=== PATIENT | female | born 1935 | race Caucasian/White ===

== ENCOUNTER 2018-05-18 13:02 | Observation (INO) ==
[2018-05-18] MEDS: Acetaminophen 325 MG Tablet PO ONE ×2 (14:44→15:48)
[2018-05-18 14:49] LABS: Baso % (Auto) 0.6 % (0.0-2.0); Eos # (Auto) 0.1 th/mm3 (0.0-0.4); Hematocrit 36.2 % (35.0-46.0); Hemoglobin 12.3 gm/dL (11.6-15.3); Lymph # (Auto) 0.8 th/mm3 (1.0-4.8); Lymph % (Auto) 14.7 % (9.0-44.0); Mean Corpuscular HGB Conc 34.1 % (32.0-36.0); Mean Corpuscular Hemoglobin 32.4 pg (27.0-34.0); Mean Corpuscular Volume 95.1 fL (80.0-100.0); Mean Platelet Volume 9.1 fL (7.0-11.0); Mono # (Auto) 0.5 th/mm3 (0.0-0.9); Mono % (Auto) 8.1 % (0.0-8.0); Neut # (Auto) 4.2 th/mm3 (1.8-7.7); Neut % (Auto) 74.6 % (16.0-70.0); Platelet Count 202 th/mm3 (150-450); Red Cell Distribution Width 13.5 % (11.6-17.2); White Blood Count 5.7 th/mm3 (4.0-11.0)
--- NOTE | 2018-05-18 14:51 | ED ---
HPI General Chief complaint: Syncope Stated complaint: Syncope Time Seen by Provider: 05/18/18 14:17 Source: patient, EMS and RN notes reviewed Mode of arrival: EMS History of Present Illness HPI narrative: 82yF presenting with syncope. The patient states that she moved back from from a rehab facility yesterday and ambulates with a walker at baseline. This afternoon, she was walking into the bathroom when she began to feel lightheaded/ dizzy and lost consciousness, hitting her chest on the towel bar. She is unsure if she hit her head but currently complains of neck pain and substernal chest pain ("aching like when I had my heart attack", non-radiating, constant, moderate intensity, not made better or worse by anything). She says that for the past 2 days she's been having intermittent episodes of palpitations and dyspnea which last for a few seconds and resolve on their own. Denies cough, current palpitations, visual disturbance, or numbness/ tingling/ weakness of extremities. Tactical/Mobile Watch Officer is Dr. Amaya. Family history non-contributory. Related Data Home Medications Medication Instructions Recorded Confirmed divalproex 250 mg PO DAILY 04/07/18 05/18/18 omeprazole 20 mg PO DAILY 04/07/18 05/18/18 prednisone 5 mg PO DAILY 04/07/18 05/18/18 Previous Rx's Medication Instructions Recorded acidophilus-sporogenes 1 tab PO TID #27 tab 04/13/18 [Acidophilus Ex Str (L. sporog)] aspirin 162 mg PO DAILY #60 tab 04/13/18 carvedilol [Coreg] 6.25 mg PO BID #60 tab 04/13/18 clopidogrel [Plavix] 75 mg PO DAILY #30 tab 04/13/18 diltiazem HCl 30 mg PO Q6H #120 tab 04/13/18 isosorbide mononitrate 30 mg PO DAILY #30 tab 04/13/18 levofloxacin 750 mg PO DAILY #1 tab 04/13/18 nitroglycerin [Nitrostat] 0.4 mg SUBLINGUAL Q5M PRN #30 tab 04/13/18 ramipril 2.5 mg PO DAILY #30 cap 04/13/18 Allergies Allergy/AdvReac Type Severity Reaction Status Date / Time codeine Allergy Unknown Bleeding Verified 05/18/18 14:10 erythromycin base Allergy Unknown Anxiety Verified 05/18/18 14:10 penicillin G Allergy Unknown Fatigue Verified 05/18/18 14:10 atorvastatin Allergy Chest Pain Verified 05/18/18 14:10 Review of Systems ROS: all other systems reviewed are negative Constitutional Denies fever(s) Eyes Denies blurry vision ENT Denies nasal congestion Cardiovascular Reports chest pain Respiratory Denies cough Gastrointestinal Denies nausea Genitourinary Denies dysuria Musculoskeletal Denies back pain and Reports neck pain Neurologic Denies confusion Psychiatric Denies confusion [facility] Medical History Medical History Heart murmur (Acute) Osteoporosis (Acute) Sigmoid colon mucosal prolapse (Acute) Surgical History Surgical History History of neck surgery (Acute) Hx of appendectomy (Acute) Family History Family History Sister CHF (congestive heart failure) Other Osteoarthritis Social History Social History Substance History: No History of Abuse Second Hand Smoke Exposure: No Smoking Status: Never smoker Tobacco Type: Cigarettes How Often Do You Have a Drink Containing Alcohol: Never Recent Travel in [facility] within the Last 8 Weeks: No Recent Out of Country Travel within the Last 8 Weeks: No Immunization History Tetanus Immunization: <5 Years Exam Const General: healthy appearing and no acute distress [facility] Head: normocephalic and atraumatic Face and sinus: normal facial exam Eyes General: appearance normal, both eyes and all related structures Pupils: PERRL Neck Other: (+) midline and paraspinal cervical tenderness Chest Other: Abrasion to anterior chest, no chest wall instability Resp Effort & Inspection: normal respiratory effort Auscultation: no rhonchi and no wheezes Cardio Rate: regular rate Rhythm: regular rhythm GI Inspection: non-distended Palpation: soft and nontender Skin General: no rashes or lesions noted Neuro General: alert, awake, oriented x3 and no focal motor deficits Psych Affect: normal affect Course Initial Documented Vital Signs Temperature 98.2 F 05/18/18 14:08 Pulse Rate 58 L 05/18/18 14:08 Respiratory Rate 20 05/18/18 14:08 Blood Pressure 141/65 H 05/18/18 14:08 Pulse Oximetry 97 05/18/18 14:08 Last Documented Vital Signs Temperature 98.2 F 05/18/18 14:08 Pulse Rate 58 L 05/18/18 14:08 Respiratory Rate 18 05/18/18 14:13 Blood Pressure 141/65 H 05/18/18 14:08 Pulse Oximetry 97 05/18/18 14:08 Medical Decision Making MDM Narrative Medical decision making narrative: Assessment: 82yF presenting with chest pain and syncope Plan: EKG and monitor CXR Labs, including trop CT brain and C spine UA Addendum: Patient found to have episodes of brief rapid A fib on 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 She reports palpitations and dyspnea during these episodes. This is likely the underlying etiology of her syncope. I discussed the results of labs and imaging with the patient as well as plan to keep her for observation and further cardiac monitoring; she understands and agrees. Case discussed with Dr. Rogel of [facility]. Medical Screen Exam Complete: Yes Emergency Medical Condition: Yes Differential Diagnosis Differential Diagnosis: Differential diagnosis includes, but is not limited to: arrhythmia, ACS, pneumonia, pleural effusion, ICH, C spine injury, electrolyte abnormality, dehydration, UTI Medical Records Medical records reviewed: Yes I reviewed the patient's medical records. Lab Data Lab results reviewed: Yes I reviewed the patient's lab results. Result diagrams: 05/18/18 14:35 05/18/18 14:35 Lab Results 05/18/18 05/18/18 05/18/18 Range/Units 14:35 14:35 14:35 WBC 5.7 (4.0-11.0) th/mm3 RBC 3.80 L (4.00-5.30) mil/mm3 Hgb 12.3 (11.6-15.3) gm/dL Hct 36.2 (35.0-46.0) % MCV 95.1 (80.0-100.0) fL MCH 32.4 (27.0-34.0) pg MCHC 34.1 (32.0-36.0) % RDW 13.5 (11.6-17.2) % Plt Count 202 (150-450) th/mm3 MPV 9.1 (7.0-11.0) fL Prelim Diff (Auto) Slide review pending Neut % (Auto) 74.6 H (16.0-70.0) % Lymph % (Auto) 14.7 (9.0-44.0) % Tyler % (Auto) 8.1 H (0.0-8.0) % Eos % (Auto) 2.0 (0.0-4.0) % Baso % (Auto) 0.6 (0.0-2.0) % Neut # (Auto) 4.2 (1.8-7.7) th/mm3 Lymph # (Auto) 0.8 L (1.0-4.8) th/mm3 Tyler # (Auto) 0.5 (0.0-0.9) th/mm3 Eos # (Auto) 0.1 (0.0-0.4) th/mm3 Baso # (Auto) 0.0 (0.0-0.2) th/mm3 WBC Differential Manual diff final Seg Neuts % (Manual) 71 H (16-70) % Band Neuts % (Manual) 3 (0-6) % Lymphocytes % (Manual) 17 (9-44) % Monocytes % (Manual) 6 (0-8) % Eosinophils % (Manual) 2 (0-4) % Basophils % (Manual) 1 (0-2) % Abs Neuts (Manual) 4.2 (1.8-7.7) th/mm3 Differential Comment . Platelet Estimate Normal (Normal) Platelet Morphology Normal (Normal) Acanthocytes (Spur) Occ H (None) Sodium 140 (136-145) meq/L Potassium 3.8 (3.5-5.1) meq/L Chloride 107 (98-107) meq/L Carbon Dioxide 27.2 (21.0-32.0) meq/L Anion Gap 6 (5-15) meq/L BUN 16 (7-18) mg/dL Creatinine 0.75 (0.50-1.00) mg/dL Estimated GFR 74 L (>89) mL/min Random Glucose 105 (74-106) mg/dL Calcium 8.3 L (8.5-10.1) mg/dL Magnesium 2.1 (1.5-2.5) mg/dL Total Bilirubin 0.3 (0.2-1.0) mg/dL AST 20 (15-37) U/L ALT 17 (10-53) U/L Alkaline Phosphatase 65 (45-117) U/L Troponin I Less than 0.02 L (0.02-0.05) ng/mL B-Natriuretic Peptide 157 H (0-100) pg/mL Total Protein 6.7 (6.4-8.2) g/dL Albumin 3.3 L (3.4-5.0) g/dL Imaging Data Radiologist's impression: Cervical Spine CT 05/18/18 14:30 CONCLUSION: Severe degenerative changes. No acute bony injury. Chest X-Ray 05/18/18 14:30 CONCLUSION: Diffuse interstitial prominence throughout the lungs. No acute infiltrate. Previous coronary stenting Head CT 05/18/18 14:30 CONCLUSION: No acute intracranial injury . . ECG Data Attestation: I personally reviewed and interpreted this ECG as follows: Interpretation: Rate: 56 BPM Rhythm: Sinus [place]: Normal Intervals: Normal intervals, no blocks, QTc 442 ms Q waves: aVL T waves: Inverted in aVL ST segments: No elevations or depressions Impression: Non-specific EKG, no changes as compared to EKG from 04/13/2018. Discharge Plan Discharge Disposition Patient Disposition: ED Admit(ED Internal Use Only) Discharge Condition Condition: Stable Discharge Order Discharge Orders: ED Use Only Admit Order (Routine); Ordered 05/18/18 Ordered By: Ramona Ruiz Discharge Details Diagnosis: Paroxysmal atrial fibrillation with RVR, Cardiac syncope, Chest pain, Chest wall contusion Physicians Team ED Provider: Ramona Ruiz Primary Care Provider: UNKNOWN, Attending Provider: Luiza Rogel Discharge Interventions Interventions: Vital Signs Last Done: 05/18/18 14:13 Status ED Status: Admitted Observation Patient
--- NOTE | 2018-05-18 14:59 | XR ---
EXAM DATE: 05/18/2018 2:50 PM EST AGE/SEX: 82 years / Female INDICATIONS: . Syncope, short of breath. CLINICAL DATA: This is the patient's initial encounter. Patient reports that signs and symptoms have been present for 1 day and indicates a pain score of 0/10. MEDICAL/SURGICAL HISTORY: None. . 2 coronary artery stents 03/2018, breast implants 15 years ago . COMPARISON: [facility], CHEST 1V SINGLE AP, 04/07/2018. . FINDINGS: PA and lateral views of the chest demonstrate the lungs to be symmetrically aerated without evidence of mass, infiltrate or effusion. There is mild diffuse interstitial prominence throughout the lungs. The cardiomediastinal contours are unremarkable. Osseous structures are intact. Suspected coronary st ents CONCLUSION: Diffuse interstitial prominence throughout the lungs. No acute infiltrate. Previous coronary stenting Electronically signed by: Andrea Santiago MD Board Certified Radiologist 05/18/2018 2:58 PM EST
--- NOTE | 2018-05-18 15:17 | CT ---
EXAM DATE: 05/18/2018 3:13 PM EST AGE/SEX: 82 years / Female INDICATIONS: Trauma, patient fell into shower rails. Complains of dizziness. CLINICAL DATA: This is the patient's initial encounter. Patient reports that signs and symptoms have been present for 1 day and indicates a pain score of 2/10. MEDICAL/SURGICAL HISTORY: None. . neck surgery RADIATION DOSE: 27.68 CTDI (mGy) COMPARISON: No prior exams available for comparison. TECHNIQUE: CT of the head without contrast. Using automated exposure control and adjustment of the mA and/or kV according to patient size, radiation dose was kept as low as reasonably achievable to ob tain optimal diagnostic quality images. DICOM format image data is available electronically for revi ew and comparison. FINDINGS: Cerebrum: The ventricles are normal for age. No evidence of midline shift, mass lesion, hemorrhage or acute infarction. No extraaxial fluid collections are seen. Posterior Fossa: The cerebellum and brainstem are intact. The 4th ventricle is midline. The cerebe llopontine angle is unremarkable. Extracranial: The visualized portion of the orbits is intact. Skull: The calvaria is intact. No evidence of skull fracture. CONCLUSION: No acute intracranial injury . . Electronically signed by: Troy Mccarty MD Board Certified Radiologist 05/18/2018 3:15 PM EST
[2018-05-18 15:20] LABS: Alanine Aminotransferase 17 U/L (10-53); Alkaline Phosphatase 65 U/L (45-117); Total Protein 6.7 g/dL (6.4-8.2)
--- NOTE | 2018-05-18 15:21 | CT ---
EXAM DATE: 05/18/2018 3:17 PM EST AGE/SEX: 82 years / Female INDICATIONS: Patient fell into shower rail. CLINICAL DATA: This is the patient's initial encounter. Patient reports that signs and symptoms have been present for 1 day and indicates a pain score of 5/10. MEDICAL/SURGICAL HISTORY: None. . neck surgery RADIATION DOSE: 18.68 CTDI (mGy) COMPARISON: No prior exams available for comparison. TECHNIQUE: Contiguous axial images were obtained using helical multirow detector technique. The vol umetric data was post-processed with multiplanar reconstruction in oblique axial, sagittal, and coron al planes. Using automated exposure control and adjustment of the mA and/or kV according to patient s ize, radiation dose was kept as low as reasonably achievable to obtain optimal diagnostic quality catalina ges. DICOM format image data is available electronically for review and comparison. FINDINGS: Previous fusion at C5-6. Slight residual reversal of normal cervical lordosis. Minimal anterolisthesi s of C3 relative to C4. No evidence of cervical spine fracture. Severe degenerative change with disc space narrowing at all visualized levels. Primarily ventral endplate osteophytes. Severe posterior fa cet arthropathy at multiple levels. No evidence of paraspinal hematoma. CONCLUSION: Severe degenerative changes. No acute bony injury. Electronically signed by: Troy Mccarty MD Board Certified Radiologist 05/18/2018 3:20 PM EST
[2018-05-18 15:29] LABS: Albumin 3.3 g/dL (3.4-5.0); Anion Gap 6 meq/L (5-15); Aspartate Aminotransferase 20 U/L (15-37); Blood Urea Nitrogen 16 mg/dL (7-18); Calcium 8.3 mg/dL (8.5-10.1); Carbon Dioxide 27.2 meq/L (21.0-32.0); Chloride 107 meq/L (98-107); Glomerular Filtration Rate 74 mL/min (>89); Glucose,Random 105 mg/dL (74-106); Magnesium 2.1 mg/dL (1.5-2.5); Potassium 3.8 meq/L (3.5-5.1); Sodium 140 meq/L (136-145)
[2018-05-18 15:54] LABS: Acanthocytes Occ; Eosinophils 2 % (0-4); Lymphocytes 17 % (9-44); Monocytes 6 % (0-8); Platelet Estimate Normal (Normal); Platelet Morphology Normal (Normal)
[2018-05-18] MEDS ORDERED: Acetaminophen 325 MG Tablet PO PRN (16:10)
[2018-05-18] MEDS ORDERED: Bisacodyl 10 MG Supp RECTAL PRN (16:10)
--- NOTE | 2018-05-18 17:00 | P.HPIM ---
History of Present Illness Primary Care Physician: UNKNOWN Chief Complaint: I passed out History of Present Illness: 82-year-old female with history of non-ST elevation myocardial infarction with findings of coronary artery stent status post stent with cardiology, Dr. Amaya on 04/12, recent newly diagnosed atrial fibrillation, aortic stenosis, [facility]. She was discharged home with home health care yesterday by [facility] and stated that this afternoon as she was walking to the bathroom felt dizzy and lightheaded and had a syncope episode hitting her right chest wall on the shower door. She usually resides alone but at that time she had a friend over and also a building maintenance repairer working on her restroom who stated that she came to after a few minutes. She did not have any bowel or bladder incontinence nor any confusion. She reports having right-sided chest pain after her syncope episode. She states yesterday evening she had some sensation of heart fluttering. She is in the process of getting her medication filled today from the sn[facility] however did have some medications she was given on discharge which she took. She does not have that list of medications however reviewing the external medication data from [facility] pharmacy revealed she was prescribed Coreg 3.125 mg p.o. twice daily, Imdur 30 mg p.o. daily, aspirin, Plavix 75 mg p.o. daily, divalproex to 50 mL p.o. daily, and prednisone 5 mg p.o. daily. Patient was discharged on diltiazem 30 mg p.o. every 6 hours along with Coreg 6.25 mg p.o. twice daily back in March. Review of Systems Constitutional: Reports as per HPI, Denies chills, Denies fatigue, Denies frequent falls, Denies headache(s) and Denies malaise Eyes: Denies blurry vision, Denies change in vision and Denies eye pain Ears, Nose, Mouth, and Throat: Denies abnormal hearing, Denies headache(s), Denies mouth pain, Denies nasal congestion, Denies neck pain and Denies sore throat Cardiovascular: Denies chest pain, Reports rapid heart rate, Denies pedal edema , Denies palpitations and Denies dyspnea Respiratory: Denies cough and Denies dyspnea Gastrointestinal: Denies abdominal pain, Denies constipation, Denies loose stools, Denies nausea and Denies vomiting Musculoskeletal: Denies back pain, Denies myalgias, Denies arthralgias, Denies neck pain and Denies numbness Skin/Breast: Denies new lesions and Denies rash Neurologic: Reports as per HPI, Denies abnormal hearing, Reports dizziness, Reports syncope, Denies headache(s), Denies focal weakness, Denies memory loss, Denies numbness, Denies other visual disturbances, Denies paresthesias and Denies weakness Psychiatric: Denies anxiety, Denies depression and Denies memory loss Endocrine: Denies cold intolerance, Denies heat intolerance and Denies palpitations Hematologic/Lymphatic: Denies easy bleeding and Denies easy bruising [facility] Medical History Medical History Aortic stenosis (Chronic) CAD (coronary artery disease) (Chronic) Irritable bowel syndrome (Chronic) Paroxysmal atrial fibrillation (Chronic) Vertigo (Chronic) Heart murmur (Acute) Osteoporosis (Acute) Sigmoid colon mucosal prolapse (Acute) Surgical History Surgical History History of neck surgery (Acute) Hx of appendectomy (Acute) Social History Social History Substance History: No History of Abuse Second Hand Smoke Exposure: No Smoking Status: Never smoker Tobacco Type: Cigarettes How Often Do You Have a Drink Containing Alcohol: Never Recent Travel in [facility] within the Last 8 Weeks: No Recent Out of Country Travel within the Last 8 Weeks: No Immunization History Tetanus Immunization: <5 Years Medications and Allergies Allergies Allergy/AdvReac Type Severity Reaction Status Date / Time codeine Allergy Unknown Bleeding Verified 05/18/18 14:10 erythromycin base Allergy Unknown Anxiety Verified 05/18/18 14:10 penicillin G Allergy Unknown Fatigue Verified 05/18/18 14:10 atorvastatin Allergy Chest Pain Verified 05/18/18 14:10 Home Medications Medication Instructions Recorded Confirmed Type divalproex 250 mg PO DAILY 04/07/18 05/18/18 History omeprazole 20 mg PO DAILY 04/07/18 05/18/18 History prednisone 5 mg PO DAILY 04/07/18 05/18/18 History Active Medications: Active Medications Acetaminophen (Tylenol) 650 mg PO Q4H PRN PRN Reason: Temp > 100.4 Al Hydroxide/Mg Hydroxide (Milk Of Magnesia Liq) 30 ml PO Q12H PRN PRN Reason: Mild Constipation Bisacodyl (Dulcolax Supp) 10 mg RECTAL DAILY PRN PRN Reason: SEVERE CONSITIPN PO INTOLERABL Lactulose (Lactulose Liq) 30 ml PO DAILY PRN PRN Reason: SEVERE CONSITIPATION Ondansetron HCl (Zofran Inj) 4 mg IV.PUSH Q6H PRN PRN Reason: NAUSEA OR VOMITING Sennosides (Senokot) 17.2 mg PO Q12H PRN PRN Reason: Moderate Constipation Sodium Chloride (Ns Flush) 2 ml IV.FLUSH PRN PRN PRN Reason: FLUSH AFTER USING IV ACCESS Sodium Chloride (Ns Flush) 2 ml IV.FLUSH BID MK Sodium Chloride (Ns Flush) 2 ml IV.FLUSH PRN PRN PRN Reason: FLUSH AFTER USING IV ACCESS Physical Exam Vital signs: Vital Signs 05/18/18 14:08 05/18/18 14:13 Temperature 98.2 F Pulse Rate 58 L Respiratory Rate 20 18 Blood Pressure 141/65 H Pulse Oximetry 97 Intake & Output 05/17/18 05/18/18 05/18/18 18:59 06:59 18:59 Weight 52.163 kg Narrative: GENERAL: Well-nourished well-developed female in no acute distress SKIN: Right substernal chest wall with superficial abrasion HEAD: Atraumatic. Normocephalic. EYES: Pupils equal and round. No scleral icterus. No injection or drainage. ENT: No nasal bleeding or discharge. Mucous membranes pink and moist. NECK: Trachea midline. No JVD. CARDIOVASCULAR: Regular rate and rhythm with a 2 out of 6 systolic ejection fraction. RESPIRATORY: No accessory muscle use. Clear to auscultation. Breath sounds equal bilaterally. GASTROINTESTINAL: Abdomen soft, non-tender, nondistended. Normoactive bowel sounds MUSCULOSKELETAL: Extremities without clubbing, cyanosis, or edema. No obvious deformities. NEUROLOGICAL: Awake and alert to person place time and situation. No obvious cranial nerve deficits. Motor grossly within normal limits. Five out of 5 muscle strength in the arms and legs. Normal speech. PSYCHIATRIC: Appropriate mood and affect; insight and judgment normal. Results Labs CBC & Chem 7: 05/18/18 14:35 05/18/18 14:35 Imaging Impressions Cervical Spine CT 05/18/18 14:30 CONCLUSION: Severe degenerative changes. No acute bony injury. Chest X-Ray 05/18/18 14:30 CONCLUSION: Diffuse interstitial prominence throughout the lungs. No acute infiltrate. Previous coronary stenting Head CT 05/18/18 14:30 CONCLUSION: No acute intracranial injury . . Caprini VTE Risk Assessment Caprini VTE Risk Assessment: Moderate/High Risk (score >= 2) Caprini Risk Assessment Model: Point Value = 1 Point Value = 2 Point Value = 3 Point Value = 5 Age 41-60 Minor surgery BMI > 25 kg/m2 Swollen legs Varicose veins or History of unexplained or recurrent spontaneous Oral contraceptives or hormone replacement Sepsis (< 1 month) Serious lung disease, including pneumonia (< 1 month) Abnormal pulmonary function Acute myocardial infarction Congestive heart failure (< 1 month) History of inflammatory bowel disease Medical patient at bed rest Age 61-74 Arthroscopic surgery Major open surgery (> 45 min) Laparoscopic surgery (> 45 min) Malignancy Confined to bed (> 72 hours) Immobilizing plaster cast Central venous access Age >= 75 History of VTE Family history of VTE Factor V Leiden Prothrombin [id number] Lupus anticoagulant Anticardiolipin antibodies Elevated serum homocysteine Heparin-induced thrombocytopenia Other congenital or acquired thrombophilia Stroke (< 1 month) Elective arthroplasty Hip, pelvis, or leg fracture Acute spinal cord injury (< 1 month) Prophylaxis Regimen: Total Risk Factor Score Risk Level Prophylaxis Regimen 0-1 Low Early ambulation 2 Moderate Order ONE of the following: *Sequential Compression Device (SCD) *Heparin 5000 units SQ BID 3-4 Higher Order ONE of the following medications: *Heparin 5000 units SQ TID *Enoxaparin/Lovenox 40 mg SQ daily (WT < 150 kg, CrCl > 30 mL/min) *Enoxaparin/Lovenox 30 mg SQ daily (WT < 150 kg, CrCl > 10-29 mL/min) *Enoxaparin/Lovenox 30 mg SQ BID (WT < 150 kg, CrCl > 30 mL/min) AND/OR *Sequential Compression Device (SCD) 5 or more Highest Order ONE of the following medications: *Heparin 5000 units SQ TID (Preferred with Epidurals) *Enoxaparin/Lovenox 40 mg SQ daily (WT < 150 kg, CrCl > 30 mL/min) *Enoxaparin/Lovenox 30 mg SQ daily (WT < 150 kg, CrCl > 10-29 mL/min) *Enoxaparin/Lovenox 30 mg SQ BID (WT < 150 kg, CrCl > 30 mL/min) AND *Sequential Compression Device (SCD) Assessment and Plan Plan 82-year-old white female with recent diagnosed coronary artery disease status post stent in March 2018, paroxysmal atrial fibrillation who was just discharged from local [facility] presents to the emergency room with syncope episode Syncope- with history of underlying paroxysmal atrial fibrillation, currently normal sinus rhythm, patient's cardiac medication has been adjusted recently at the [facility], Cardiac telemetry monitoring Had recent 2D echo that revealed patient had mild aortic stenosis, mild mitral stenosis, mild mitral valve regurgitation with EF of 60-65% Check carotid ultrasound Check orthostatic blood pressure Serial cardiac enzymes with EKG Coronary artery disease with recent stentresume aspirin and Plavix, Coreg, Imdur Chest wall contusion status post syncopepain control, Polysporin ointment to abrasion. Paroxysmal atrial fibrillation hx currently in normal sinus rhythmincrease Coreg dose, continue monitor on telemetry to determine if patient will need to restart back on Cardizem; Due to history of ambulation requiring assistance of a walker and recent syncope episode, currently not an anticoagulation candidate as patient is currently on aspirin and Plavix DVT prophylaxisSCDs Physical therapy evaluation.
--- NOTE | 2018-05-18 17:34 | US ---
EXAM DATE: 05/18/2018 5:31 PM EST AGE/SEX: 82 years / Female INDICATIONS: Syncope. CLINICAL DATA: This is the patient's initial encounter. Patient reports that signs and symptoms have been present for 1 day and indicates a pain score of 0/10. MEDICAL/SURGICAL HISTORY: . Aortic stenosis. CAD. Heart murmur. Irritable bowel syndrome. Osteo porosis. Paroxysmal atrial fibrillation. Sigmoid colon mucosal prolapse. Vertigo. . Neck surgery. A ppendectomy. COMPARISON: [facility], US ECHOCARDIOGRAM, 04/11/2016. . VELOCITY PARAMETERS: ICA/CCA Ratio: Right 0.9 , Left 0.9 ICA: Right 74 cm/sec, Left 108 cm/sec CCA: Right 79 cm/sec, Left 115 cm/sec ECA: Right 44 cm/sec, Left 72 cm/sec Vertebral: Right 26 cm/sec antegrade, Left 61 cm/sec antegrade FINDINGS: Right Carotid: Moderate arteriosclerotic plaque is visualized.The waveforms are within normal limits . Left Carotid: Moderate arteriosclerotic plaque is visualized. The waveforms are within normal limits . Other: None. CONCLUSION: 1. Right Internal Carotid Artery: Findings indicate 50-69% stenosis. 2. Left Internal Carotid Artery: Findings indicate 50-69% stenosis. Electronically signed by: Andrea Santiago MD Board Certified Radiologist 05/18/2018 5:33 PM EST
[2018-05-18] MEDS: Lactobacillus Acidophilus/L. Spores Tablet PO SCH (18:46)
[2018-05-18] MEDS: Bacitracin/Polymyxin Oint 15 GM Tube TOPICAL SCH (20:34)
[2018-05-18] MEDS: Carvedilol 6.25 MG Tablet PO SCH (20:35)
[2018-05-18] MEDS ORDERED: Ketorolac Inj 30 MG/ML (IVP) Vial IV.PUSH ONE (21:30)
[2018-05-18 23:04] LABS: Bilirubin,Urine Negative (Negative); Clarity,Urine Clear (Clear); Color,Urine Yellow (Yellw/Straw); Glucose,Urine (UA) Negative (Negative); Leukocyte Esterase,Urine Negative (Negative); Nitrite,Urine Negative (Negative); Specific Gravity,Urine 1.012 (1.002-1.035); Squamous Epithelial Cell,Urine <1 /hpf (0-5)
[2018-05-19] MEDS: predniSONE 5 MG Tablet PO SCH (08:32)
[2018-05-19] MEDS: Lactobacillus Acidophilus/L. Spores Tablet PO SCH ×3 (08:32→17:34)
[2018-05-19] MEDS: Pantoprazole Sodium 20 MG DR Tablet PO SCH (08:33)
[2018-05-19] MEDS: Divalproex 250 MG ER Tablet PO SCH (08:33)
[2018-05-19] MEDS: Carvedilol 6.25 MG Tablet PO SCH ×2 (08:33→21:18)
[2018-05-19] MEDS: Isosorbide Mononitrate 30 MG ER 24HR Tablet (Imdur) PO SCH (08:34)
[2018-05-19] MEDS: Bacitracin/Polymyxin Oint 15 GM Tube TOPICAL SCH ×2 (08:37→21:18)
--- NOTE | 2018-05-19 14:16 | P.PNIM ---
Subjective Interval history: Patient still complains of feeling dizzy. She is scared to go home and passing out and falling again. She denies any focalized weakness or numbness. No headaches. Complaint of right sided chest pain Physical Exam Vital signs: Vital Signs 05/18/18 14:13 05/18/18 20:00 05/18/18 20:32 Temperature 97.9 F Pulse Rate 76 63 Respiratory Rate 18 16 Blood Pressure 112/56 L Pulse Oximetry 05/18/18 23:55 05/19/18 04:00 05/19/18 07:52 Temperature 97.9 F Pulse Rate 55 L 61 58 L Respiratory Rate 16 16 18 Blood Pressure 119/56 L 154/67 H 161/73 H Pulse Oximetry 98 99 97 05/19/18 08:00 05/19/18 11:51 Temperature 97.8 F Pulse Rate 56 L 65 Respiratory Rate 20 Blood Pressure 110/56 L Pulse Oximetry 98 Intake & Output 05/18/18 05/19/18 05/19/18 18:59 06:59 18:59 Weight 49.895 kg Other: # Voids 0 Date of Last Bowel Movement 05/18/18 Weight On Admission 49.895 kg Narrative: GENERAL: Well-nourished well-developed female in no acute distress SKIN: Right substernal chest wall with superficial abrasion CARDIOVASCULAR: Regular rate and rhythm with a 2 out of 6 systolic ejection fraction. RESPIRATORY: No accessory muscle use. Clear to auscultation. Breath sounds equal bilaterally. GASTROINTESTINAL: Abdomen soft, non-tender, nondistended. Normoactive bowel sounds MUSCULOSKELETAL: Extremities without clubbing, cyanosis, or edema. No obvious deformities. NEUROLOGICAL: Awake and alert to person place time and situation. No obvious cranial nerve deficits. Motor grossly within normal limits. Five out of 5 muscle strength in the arms and legs. Normal speech. PSYCHIATRIC: Appropriate mood and affect; insight and judgment normal. Results Labs CBC & Chem 7: 05/18/18 14:35 05/18/18 14:35 Imaging Imaging: Impressions Carotid Doppler Study 05/18/18 00:00 CONCLUSION: 1. Right Internal Carotid Artery: Findings indicate 50-69% stenosis. 2. Left Internal Carotid Artery: Findings indicate 50-69% stenosis. Cervical Spine CT 05/18/18 14:30 CONCLUSION: Severe degenerative changes. No acute bony injury. Chest X-Ray 05/18/18 14:30 CONCLUSION: Diffuse interstitial prominence throughout the lungs. No acute infiltrate. Previous coronary stenting Head CT 05/18/18 14:30 CONCLUSION: No acute intracranial injury . . Assessment and Plan Plan 82-year-old white female with recent diagnosed coronary artery disease status post stent in March 2018, paroxysmal atrial fibrillation who was just discharged from local [facility] facility presents to the emergency room with syncope episode Syncope- with history of underlying paroxysmal atrial fibrillation, currently normal sinus rhythm, patient's cardiac medication has been adjusted recently at the retirement [facility], Cardiac telemetry monitoring Had recent 2D echo that revealed patient had mild aortic stenosis, mild mitral stenosis, mild mitral valve regurgitation with EF of 60-65% Carotid ultrasound showed 50-69% stenosis, vascular surgery consulted recommend CTA neck for further evaluation, currently on aspirin and Plavix Negative orthostatic blood pressure Serial cardiac enzymes negative with unchanged EKG Coronary artery disease with recent stentresume aspirin and Plavix, Coreg, Imdur Chest wall contusion status post syncopepain control, Polysporin ointment to abrasion. Paroxysmal atrial fibrillation hx -currently in normal sinus rhythmincrease Coreg dose, continue monitor on telemetry to determine if patient will need to restart back on Cardizem; currently still in normal sinus rhythm with no signs of atrial fibrillation. Due to history of ambulation requiring assistance of a walker and recent syncope episode, currently not an anticoagulation candidate as patient is currently on aspirin and Plavix Dizziness-questionable due to carotid stenosis versus vertigo, negative orthostatic hypotension, trial of meclizine DVT prophylaxisSCDs Physical therapy evaluation. Consult occupational therapy Progress Note: Quality VTE Deep Vein Thrombosis/Pulmonary Embolism Present on Admission: No
--- NOTE | 2018-05-19 16:23 | CT ---
EXAM DATE: 05/19/2018 4:18 PM EST AGE/SEX: 82 years / Female INDICATIONS: Occlusion, syncope, abnormal ultrasound. CLINICAL DATA: This is the patient's initial encounter. Patient reports that signs and symptoms have been present for 1 day and indicates a pain score of 0/10. MEDICAL/SURGICAL HISTORY: Cardiovascular disease. Irritable bowel syndrome. Heart murmur a-fib Ap pendectomy. neck surgery RADIATION DOSE: 26.26 CTDI (mGy) [place] [facility] [place]/18/2018. . TECHNIQUE: Volumetric scanning was performed using a multirow detector CT scanner during bolus infus ion of 72 ml Omnipaque 350 (iohexol) nonionic water-soluble contrast as a single exam dose. The d shon was postprocessed with a variety of visualization algorithms including full-volume maximum intens ity projection, multiplanar sliding thin-slab reformation, curved-planar reformation, and surface-heather dering techniques. Using automated exposure control and adjustment of the mA and/or kV according to patient size, radiation dose was kept as low as reasonably achievable to obtain optimal diagnostic qu ality images. DICOM format image data is available electronically for review and comparison. Percent stenosis is calculated using the diameter of the stenotic region over the diameter of the nor mal distal internal carotid artery. FINDINGS: Aortic Arch: There is a three-vessel origin of the great vessels from the aorta. Extensive calcifica tion of the arch but the arch vessels are patent. Right Carotid: The common carotid artery is intact. Some calcification of the carotid bifurcation bu t the internal is widely patent. The external carotid artery is intact. Left Carotid: The common carotid artery is intact. Some calcification of the carotid bifurcation but the internal is widely patent. The internal carotid artery lumen is smooth without stenosis. The e xternal carotid artery is intact. Vertebrals: Patient is left vertebral dominant. Both vertebrals are patent. CONCLUSION: 1. Scattered atherosclerotic calcification in the aortic arch in both carotid bifurcations but the c ervical vessels are patent with no significant stenosis. 2. Patient is left vertebral dominant. Electronically signed by: Randal Bolanos MD Board Certified Radiologist 05/19/2018 4:21 PM EST
--- NOTE | 2018-05-19 17:52 | P.CONVS ---
History of Present Illness Service: Vascular surgery Consult date: 05/19/18 Primary Care Provider: UNKNOWN Chief Complaint: I passed out History of Present Illness: 82-year-old female with a past medical history of aortic stenosis who presents with a chief complaint of dizziness and passing out. She denies any TIA symptoms or amaurosis fugax. She denies any chest pain or shortness of breath. Review of Systems All other systems reviewed negative except as stated in HPI [facility] - History History Provided By: Patient - Medical History Medical History: Medical History (Last Reviewed 05/19/18 @ 07:08 by Cherrie Rodriguez) Aortic stenosis CAD (coronary artery disease) Irritable bowel syndrome Paroxysmal atrial fibrillation Vertigo Heart murmur Osteoporosis Sigmoid colon mucosal prolapse - Surgical History Surgical History: Surgical History (Last Reviewed 05/19/18 @ 07:08 by Cherrie Rodriguez) History of neck surgery Hx of appendectomy - Family History Family History: Family History (Last Reviewed 05/19/18 @ 07:08 by Cherrie Rodriguez) Sister CHF (congestive heart failure) Father Heart disease Other Osteoarthritis - Tobacco History Second Hand Smoke Exposure: No Smoking Status: Never smoker Tobacco Type: Cigarettes - Alcohol History How Often Do You Have a Drink Containing Alcohol: Monthly or less - Substance Use History Substance History: No History of Abuse - Travel History Recent Travel in the [place] Within the Last 8 Weeks: No Recent Travel Out of the Country Within the Last 8 Weeks: No - Immunization History Tetanus Immunization: <5 Years Medications and Allergies Active Medications: Active Medications Acetaminophen (Tylenol) 650 mg PO Q4H PRN PRN Reason: Temp > 100.4 Al Hydroxide/Mg Hydroxide (Milk Of Todd Massey) 30 ml PO Q12H PRN PRN Reason: Mild Constipation Aspirin (Aspirin Chew) 162 mg PO DAILY [facility] Last Admin: 05/19/18 08:32 Dose: 162 mg Bacitracin/Polymyxin B Sulfate (Polysporin Oint) 1 applic TOPICAL BID [facility] Last Admin: 05/19/18 08:37 Dose: 1 applic Bisacodyl (Dulcolax Supp) 10 mg RECTAL DAILY PRN PRN Reason: SEVERE CONSITIPN PO INTOLERABL Carvedilol (Coreg) 6.25 mg PO BID [facility] Last Admin: 05/19/18 08:33 Dose: 6.25 mg Clopidogrel Bisulfate (Plavix) 75 mg PO DAILY [facility] Last Admin: 05/19/18 08:33 Dose: 75 mg Divalproex Sodium (Depakote Er) 250 mg PO DAILY [facility] Last Admin: 05/19/18 08:33 Dose: 250 mg Isosorbide Mononitrate (Imdur) 30 mg PO DAILY [facility] Last Admin: 05/19/18 08:34 Dose: 30 mg Lactobacillus Acidophilus (Lactinex) 1 tab PO TID [facility] Last Admin: 05/19/18 17:34 Dose: 1 tab Lactulose (Lactulose Liq) 30 ml PO DAILY PRN PRN Reason: SEVERE CONSITIPATION Meclizine HCl (Antivert) 25 mg PO Q8HR [facility] Last Admin: 05/19/18 14:51 Dose: 25 mg Ondansetron HCl (Zofran Inj) 4 mg IV.PUSH Q6H PRN PRN Reason: NAUSEA OR VOMITING Pantoprazole Sodium (Protonix) 20 mg PO DAILY [facility] Last Admin: 05/19/18 08:33 Dose: 20 mg Prednisone (Deltasone) 5 mg PO DAILY [facility] Last Admin: 05/19/18 08:32 Dose: 5 mg Sennosides (Senokot) 17.2 mg PO Q12H PRN PRN Reason: Moderate Constipation Sodium Chloride (Ns Flush) 2 ml IV.FLUSH BID [facility] Last Admin: 05/19/18 08:36 Dose: 2 ml Sodium Chloride (Ns Flush) 2 ml IV.FLUSH PRN PRN PRN Reason: FLUSH AFTER USING IV ACCESS Allergies Allergy/AdvReac Type Severity Reaction Status Date / Time codeine Allergy Unknown Bleeding Verified 05/18/18 14:10 erythromycin base Allergy Unknown Anxiety Verified 05/18/18 14:10 penicillin G Allergy Unknown Fatigue Verified 05/18/18 14:10 atorvastatin Allergy Chest Pain Verified 05/18/18 14:10 Home Medications Medication Instructions Recorded Confirmed Type divalproex 250 mg PO DAILY 04/07/18 05/18/18 History omeprazole 20 mg PO DAILY 04/07/18 05/18/18 History prednisone 5 mg PO DAILY 04/07/18 05/18/18 History Physical Exam Vital Signs / I&O: Vital Signs 05/18/18 20:00 05/18/18 20:32 05/18/18 23:55 Temperature 97.9 F Pulse Rate 76 63 55 L Respiratory Rate 16 16 Blood Pressure 112/56 L 119/56 L Pulse Oximetry 98 05/19/18 04:00 05/19/18 07:52 05/19/18 08:00 Temperature 97.9 F Pulse Rate 61 58 L 56 L Respiratory Rate 16 18 Blood Pressure 154/67 H 161/73 H Pulse Oximetry 99 97 05/19/18 11:51 05/19/18 16:39 Temperature 97.8 F 98.2 F Pulse Rate 65 65 Respiratory Rate 20 20 Blood Pressure 110/56 L 157/73 H Pulse Oximetry 98 98 Intake & Output 05/18/18 05/19/18 05/19/18 18:59 06:59 18:59 Weight 49.895 kg Other: # Voids 0 Date of Last Bowel Movement 05/18/18 Weight On Admission 49.895 kg Neuro: Alert awake oriented x3, no neurological deficits HEENT: Normocephalic atraumatic Neck: Supple Heart: S1-S2 Lungs: Clear to auscultation Abdomen: Soft nontender nondistended Vascular: Palpable femoral pulses bilateral Laboratory Results - last 24 hr 05/18/18 05/19/18 05/19/18 22:35 00:24 02:32 Troponin I Less than 0.02 L Less than 0.02 L Urine Color Yellow Urine Clarity Clear Urine pH 7.0 Ur Specific [place] 1.012 Urine Protein Negative Urine Glucose (UA) Negative Urine Ketones Negative Urine Occult Blood Negative Urine Nitrate Negative Urine Bilirubin Negative Urine Urobilinogen Less than 2 Ur Leukocyte Esterase Negative Urine RBC 4 H Urine WBC 1 Ur Squamous Epith Cells <1 Micro UA Comment Culture not ind Ur Microscopic Review Not Reportable Urine Culture Comments Culture not ind Impressions Carotid Doppler Study 05/18/18 00:00 CONCLUSION: 1. Right Internal Carotid Artery: Findings indicate 50-69% stenosis. 2. Left Internal Carotid Artery: Findings indicate 50-69% stenosis. Cervical Spine CT 05/18/18 14:30 CONCLUSION: Severe degenerative changes. No acute bony injury. Chest X-Ray 05/18/18 14:30 CONCLUSION: Diffuse interstitial prominence throughout the lungs. No acute infiltrate. Previous coronary stenting Head CT 05/18/18 14:30 CONCLUSION: No acute intracranial injury . . Neck CTA 05/19/18 00:00 CONCLUSION: 1. Scattered atherosclerotic calcification in the aortic arch in both carotid bifurcations but the cervical vessels are patent with no significant stenosis. 2. Patient is left vertebral dominant. Assessment and Plan - Plan Syncope carotid artery stenosis evident on duplex ultrasound. Reviewed the CT angiography of the neck. There is significant plaquing of the left internal carotid artery with no significant stenosis noted of the bilateral carotid arteries. Continue with best medical therapy and cardiovascular risk factor modification. No vascular intervention is required at this time. Given this plaque morphology, I will schedule the patient follow-up visit in 1 year with a carotid duplex. Thank you for allowing us to participate in this patient care. If you have any questions do not hesitate to call my cell phone. Jose Richardson MD [facility] [phone]
--- NOTE | 2018-05-19 21:39 | ECG ---
Date Performed: 05/19/2018 Time Performed: 02:33:16 PTAGE: 82 years EKG: SINUS BRADYCARDIA BORDERLINE ECG PREVIOUS TRACING : 05/18/2018 14.16 Since the previous tracing, no significant change noted DOCTOR: Blue Wilson Interpretating Date/Time 05/19/2018 21:37:14
--- NOTE | 2018-05-19 22:22 | ECG ---
Date Performed: 05/18/2018 Time Performed: 14:16:34 PTAGE: 82 years EKG: SINUS BRADYCARDIA BORDERLINE ECG PREVIOUS TRACING : 04/13/2018 04.23 Since the previous tracing, no significant change noted DOCTOR: Blue Wilson Interpretating Date/Time 05/19/2018 22:22:10
[2018-05-20] MEDS: Bacitracin/Polymyxin Oint 15 GM Tube TOPICAL SCH (08:15)
[2018-05-20] MEDS: Pantoprazole Sodium 20 MG DR Tablet PO SCH (08:17)
[2018-05-20] MEDS: Divalproex 250 MG ER Tablet PO SCH (08:18)
[2018-05-20] MEDS: predniSONE 5 MG Tablet PO SCH (08:18)
[2018-05-20] MEDS: Carvedilol 6.25 MG Tablet PO SCH (08:19)
[2018-05-20] MEDS: Lactobacillus Acidophilus/L. Spores Tablet PO SCH ×3 (08:19→17:35)
[2018-05-20] MEDS: Isosorbide Mononitrate 30 MG ER 24HR Tablet (Imdur) PO SCH (08:19)
--- NOTE | 2018-05-20 09:36 | P.PNIM ---
Physical Exam Vital signs: Vital Signs 05/19/18 11:51 05/19/18 16:39 05/19/18 20:00 Temperature 97.8 F 98.2 F 98.5 F Pulse Rate 65 65 66 Respiratory Rate 20 20 16 Blood Pressure 110/56 L 157/73 H 144/65 H Pulse Oximetry 98 98 98 05/19/18 23:45 05/20/18 00:00 05/20/18 04:00 Temperature Pulse Rate 58 L 57 L 68 Respiratory Rate 16 16 Blood Pressure 154/68 H 142/73 H Pulse Oximetry 98 97 05/20/18 08:29 Temperature 97.8 F Pulse Rate 60 Respiratory Rate 18 Blood Pressure 183/79 H Pulse Oximetry 98 Intake & Output 05/19/18 05/20/18 05/20/18 18:59 06:59 18:59 Other: # Voids 0 Date of Last Bowel Movement 05/18/18 05/18/18 Narrative: GENERAL: Well-nourished well-developed female in no acute distress SKIN: Right substernal chest wall with superficial abrasion CARDIOVASCULAR: Regular rate and rhythm with a 2 out of 6 systolic ejection fraction. RESPIRATORY: No accessory muscle use. Clear to auscultation. Breath sounds equal bilaterally. GASTROINTESTINAL: Abdomen soft, non-tender, nondistended. Normoactive bowel sounds MUSCULOSKELETAL: Extremities without clubbing, cyanosis, or edema. No obvious deformities. NEUROLOGICAL: Awake and alert to person place time and situation. No obvious cranial nerve deficits. Motor grossly within normal limits. Five out of 5 muscle strength in the arms and legs. Normal speech. PSYCHIATRIC: Appropriate mood and affect; insight and judgment normal. Results Labs CBC & Chem 7: 05/18/18 14:35 05/18/18 14:35 Imaging Imaging: Impressions Neck CTA 05/19/18 00:00 CONCLUSION: 1. Scattered atherosclerotic calcification in the aortic arch in both carotid bifurcations but the cervical vessels are patent with no significant stenosis. 2. Patient is left vertebral dominant. Progress Note: Quality VTE Deep Vein Thrombosis/Pulmonary Embolism Present on Admission: No
--- NOTE | 2018-05-20 14:23 | P.DCO ---
Diagnosis (1) Syncope: Status: Acute Physical Therapy Order: Evaluate and treat Home Health Nursing Order: Nursing assessment with vital signs Case Management Consult Case Management Consult-Home Health: Yes I have seen patient Veronika Milner on 05/20/18. My clinical findings support the need for the requested home health care services because: High risk of falls I certify that my clinical findings support that this patient is homebound because: Unsteady gait/balance
--- NOTE | 2018-05-20 14:35 | P.DS ---
DS: Providers Date of admission: 05/18/18 16:13 Primary care physician: UNKNOWN Consults: 05/19/18 08:46 Consult to Vascular Surgery Routine Consulting Provider: Andres Pineda Reason for Consultation: bilateral carotid stenosis, hx of syncope; recent CAD with stent. Notified:: Physician Spoke with:: maritza/alta relay Date Notified:: 05/19/18 Time Notified:: 08:51 Ordering Provider: DARYN Brief History from admission: 82-year-old female with history of non-ST elevation myocardial infarction with findings of coronary artery stent status post stent with cardiology, Dr. Amaya on 04/12, recent newly diagnosed atrial fibrillation, aortic stenosis, was discharged to [facility] on April 13. She was discharged home with home health care yesterday by [facility] and stated that this afternoon as she was walking to the bathroom felt dizzy and lightheaded and had a syncope episode hitting her right chest wall on the shower door. She usually resides alone but at that time she had a friend over and also a antique [employer] museum maintenance worker working on her restroom who stated that she came to after a few minutes. She did not have any bowel or bladder incontinence nor any confusion. She reports having right-sided chest pain after her syncope episode. She states yesterday evening she had some sensation of heart fluttering. She is in the process of getting her medication filled today from the longterm however did have some medications she was given on discharge which she took. She does not have that list of medications however reviewing the external medication data from [facility] pharmacy revealed she was prescribed Coreg 3.125 mg p.o. twice daily, Imdur 30 mg p.o. daily, aspirin, Plavix 75 mg p.o. daily, divalproex to 50 mL p.o. daily, and prednisone 5 mg p.o. daily. Patient was discharged on diltiazem 30 mg p.o. every 6 hours along with Coreg 6.25 mg p.o. twice daily back in March. Patient update on day of discharge: Follow-up visit syncope, carotid stenosis, history of NM. Patient seen and examined today. Patient reports she is feeling a lot better. States that she has not been dizzy since she took the medication yesterday that she was started off. Discussed with patient medication for vertigo. Verbalized understanding. Patient continues to report that she is afraid of going home by herself she lives alone. States that she has no one to take care of her at home. This is her major concern. Discussed with patient options for 24 hours service home health care versus snf versus home health post hospitalization. Otherwise, denies SOB/ dyspnea. Denies chest pain, palpitations, headaches, dizziness. Denies fevers, chills, n/v/d. Denies hematuria, dysuria. DS: Summary 82-year-old white female with recent diagnosed coronary artery disease status post stent in March 2018, paroxysmal atrial fibrillation who was just discharged from local [facility] presents to the emergency room with syncope episode. Patient with a history of underlying proximal atrial fibrillation, currently normal sinus rhythm on the EKG. Cardiac medication has been adjusted recently at [facility] where patient was recently discharged. Patient had recent 2D echo revealed mild aortic stenosis, mild mitral stenosis, mild mitral valve regurgitation with EF of 60-65%. Patient has been negative orthostatic BP. Her cardiac enzymes has been negative and her EKG during her hospitalization has been unchanged. Patient has carotid ultrasound showing 50-69% stenosis, vascular surgery has been consulted recommending CTA of the neck for further evaluation, she continues to take aspirin and Plavix. As per recommendation of ocular surgery continue medical therapy and cardiovascular risk modification, no vascular intervention at this time. Patient follow-up will be needed 1 year with carotid duplex. Follow-up with Dr. Richardson in 1 year. Chest wall contusion post syncope, she was managed by pain medication and Polysporin ointment for abrasion. She has paroxysmal atrial fibrillation hx , currently in normal sinus rhythm, increase Coreg dose, she continues to be on Imdur. We will hold off on restarting her Cardizem for now. Due to history of ambulation requiring assistance of a walker and recent syncope episode, currently not an anticoagulation candidate as patient is currently on aspirin and Plavix. She has dizziness started on meclizine. She was seen by physical therapy. She has significant improvement with her dizziness on meclizine. She will need 24-hour care as she lives alone and that would be a safer discharge for her. She will have home health care PT and nursing also to follow her in the outpatient. She will need to follow with her PCP and her top stop attacher in the outpatient. Patient has met maximal benefits of hospitalization. Clinically stable for discharge with [facility]. Time Spent with Patient Total time spent providing and/or coordinating discharge services: >30mins Quality: VTE Deep Vein Thrombosis/Pulmonary Embolism Present on Admission: No Exam Narrative Exam Narrative: GENERAL: This is a thin appearing elderly female, well- developed patient, in no apparent distress. SKIN: Warm and dry. HEENT: Normocephalic. Pupils equal round and reactive. Nose without bleeding. Airway patent. NECK: Trachea midline. CARDIOVASCULAR: Regular rate and rhythm without murmurs, gallops, or rubs. Midsternal area with ecchymosis, abrasion RESPIRATORY: Clear to auscultation. Breath sounds equal bilaterally. No wheezes , rales, or rhonchi. GASTROINTESTINAL: Abdomen soft, non-tender, nondistended. Bowel Sounds normoactive x4. MUSCULOSKELETAL: Extremities without clubbing, cyanosis, or edema. NEUROLOGICAL: Awake and alert.No focal neuro deficit. Moves all extremities, weak BLE 4/5. Normal speech. Results Impressions ITS Impressions Carotid Doppler Study 05/18/18 00:00 CONCLUSION: 1. Right Internal Carotid Artery: Findings indicate 50-69% stenosis. 2. Left Internal Carotid Artery: Findings indicate 50-69% stenosis. Cervical Spine CT 05/18/18 14:30 CONCLUSION: Severe degenerative changes. No acute bony injury. Chest X-Ray 05/18/18 14:30 CONCLUSION: Diffuse interstitial prominence throughout the lungs. No acute infiltrate. Previous coronary stenting Head CT 05/18/18 14:30 CONCLUSION: No acute intracranial injury . . Neck CTA 05/19/18 00:00 CONCLUSION: 1. Scattered atherosclerotic calcification in the aortic arch in both carotid bifurcations but the cervical vessels are patent with no significant stenosis. 2. Patient is left vertebral dominant. Discharge Plan Discharge Disposition Patient Disposition: W/Home Health Service Discharge Condition Condition: Stable Discharge Order Discharge Orders: Discharge Order (Routine); Ordered 05/20/18 Ordered By: Luiza Rogel Physicians Team Primary Care Provider: UNKNOWN, Attending Provider: Luiza Rogel Other Providers: Andres Pineda Rxs /Orders / Referrals /Forms Prescriptions: New carvedilol 6.25 mg tablet 6.25 mg PO BID Qty: 60 RF: 0 bacitracin-polymyxin B 500-10,000 unit/gram Ointment 1 applic topical BID Qty: 30 RF: 0 meclizine 25 mg tablet 25 mg PO TID PRN (Reason: dizziness) Qty: 30 RF: 0 Continue prednisone 5 mg Tablet 5 mg PO DAILY RF: 0 omeprazole 40 mg Capsule,Delayed Release(Dr/Ec) 20 mg PO DAILY RF: 0 divalproex 250 mg Tablet Extended Release 24 Hr 250 mg PO DAILY RF: 0 clopidogrel [Plavix] 75 mg Tablet 75 mg PO DAILY Qty: 30 RF: 0 nitroglycerin [Nitrostat] 0.4 mg Tablet, Sublingual 0.4 mg Sublingual Q5M PRN (Reason: Chest Pain) Qty: 30 RF: 0 isosorbide mononitrate 30 mg tablet extended release 24 hr 30 mg PO DAILY Qty: 30 RF: 0 aspirin 81 mg Tablet,Chewable 162 mg PO DAILY Qty: 60 RF: 0 acidophilus-sporogenes [Acidophilus Ex Str (L. sporog)] 35 million- 25 million cell Tablet 1 tab PO TID Qty: 27 RF: 0 Discontinued levofloxacin 750 mg Tablet 750 mg PO DAILY Qty: 1 RF: 0 carvedilol [Coreg] 6.25 mg Tablet 6.25 mg PO BID Qty: 60 RF: 0 diltiazem HCl 30 mg Tablet 30 mg PO Q6H Qty: 120 RF: 0 ramipril 2.5 mg Capsule 2.5 mg PO DAILY Qty: 30 RF: 0 Referrals: Primary Care Provider [Outside] - See Instructions ( Please call the physician's office to book the appointment to be seen within 1 week.) UNKNOWN, [Primary Care Provider] - See Instructions Post Discharge Care Plan Care Plan Goals: Your Health Problems: syncope Goals to Promote Your Health: * To prevent worsening of your condition * To maintain your health at the optimal level Directions to Meet Your Goals: * Take your medications as prescribed * Follow your dietary instruction * Follow activity as directed * Keep your appointments as scheduled * Take your immunizations and boosters as scheduled * If your symptoms worsen call your PCP * If no PCP go to Urgent Care or Emergency Room Smoking is dangerous to your health. Avoid second hand smoke. You may reach the 24-hour crisis hotline for domestic abuse at . Status ED Status: Left Department
[2018-05-20 15:40] VITALS: BP 156/71; PULSE 62; RESP 16; TEMP 98.1; O2SAT 96
== END 2018-05-20 17:47 | disposition home health service (06) ==
LOC: NEDA 13:02 → NEPI 13:02 → NEPGCP 17:37
PROVIDERS: ADMIT Family Medicine; ATTEND Family Medicine
CPT/HCPCS: 70450; 70498; 71020; 71046; 72125; 80053; 81001; 83520; 83735; 83880; 84484; 85025; 90774; 90784; 93005; 93880; 96374; 97116; 97162; 97167; 99285; C8952; G0378; G8987; G8988; J1885; J7506; J7512; Q9967